=== PATIENT | female | born 1950 | race Caucasian/White ===

== ENCOUNTER 2017-02-23 13:04 | Inpatient (IN) | payer MEDICARE, OTHER ==
[~2017-02-23] VITALS: Ht 170.2 cm; Wt 64.9 kg
--- NOTE | ~2017-02-23 | CN ---
PATIENT NAME:DEMETRICE NIELSON MEDICAL RECORD: [id number] : 50 LOCATION:[facility] D.2132 ADMIT DATE: 02/23/17 ACCOUNT: [id number] CONSULTING PHYSICIAN: RACHEL NORRIS MD REFERRING PHYSICIAN: REYES JEAN MD DATE OF CONSULTATION: 02/24/2017 CONSULT REQUESTING PHYSICIAN: Sukhwinder Carrero DO REASON FOR CONSULTATION: COPD exacerbation, influenza. HISTORY OF PRESENT ILLNESS: Ms. Nielson is a 66-year-old female who is sick for the last few days. On Friday, she was seen in the walk-in clinic. She was checked for influenza and that was positive. Her was initially sick. Now, she has worsening shortness of breath, wheezing, and coughing and the patient came into the ER. She has generalized body aches and pain. The patient was admitted with acute exacerbation of COPD. PAST MEDICAL HISTORY: 1. Hypertension. 2. History of skin cancer. 3. No documented COPD. 4. Tobacco dependence syndrome. PAST SURGICAL HISTORY: Appendectomy, hysterectomy, bowel obstruction. ALLERGIES: SHE IS ALLERGIC TO DEMEROL. MEDICATIONS: She is on Rocephin IV, albuterol/ipratropium nebulizer, Cardizem, and lisinopril. Her other medications are reviewed. PERSONAL AND SOCIAL HISTORY: The patient still continues to smoke one pack per day. She is nondrinker. FAMILY HISTORY: Significant for cardiovascular disease. PHYSICAL EXAMINATION: GENERAL: Now, the patient is lying comfortably in bed. She is not in acute distress. VITAL SIGNS: Blood pressure is 143/71, pulse is 101, respiration is 18, temperature is 97.5, and SpO2 of 92% on 2 liters nasal cannula. HEENT: Conjunctivae are pink. Sclerae not icteric. NECK: Neck is supple. No JVD. CHEST: The chest excursion is minimal on both sides and wheezing on forceful expiration. HEART: Rhythm regular. Normal sounds. No murmur. ABDOMEN: Abdomen is soft. Bowel sounds present. No hepatosplenomegaly. RECTAL: Deferred. EXTREMITIES: No cyanosis, no clubbing, no pedal edema. SKIN: The skin is warm. Normal turgor. CENTRAL NERVOUS SYSTEM: The patient is awake and alert. There are no obvious cranial nerve abnormalities. The gait was not tested. CHEST RADIOGRAPH: There is hyperinflation. No acute infiltrates. CONSULT REPORT [id number] DEMETRICE NIELSON LABORATORY DATA: CBC; WBC 8.6, hemoglobin 15.9, hematocrit 47.7, and platelet count 179. Chemistry; sodium 141, potassium 3.7, BUN is 30, creatinine 0.7, glucose 105. IMPRESSION: 1. Acute exacerbation of COPD. 2. Tracheobronchitis. 3. Tobacco dependence syndrome. 4. Flu influenza. 5. Hypertension. RECOMMENDATION: 1. Supplemental oxygen. We will check the patient's pulse ox on room air at rest and with activity. 2. Continue albuterol/ipratropium nebulizer. Start on Brovana and budesonide nebulizer. 3. The patient was counseled to quit smoking. Check the alpha 1 level. Methylprednisolone IV, Rocephin IV. Followup labs and chest radiograph in the morning. If the patient is feeling better in a.m., can go home, but today I asked her to stay overnight. TRANSINT:[id number] Voice Confirmation ID: [id number] DOCUMENT ID: [id number] RACHEL NORRIS MD at 1406 CC: [id number] DICTATION DATE: 02/24/17 1256 [employer] SUPERVISOR: 02/24/[id number] DIS IN 02/25/17 [facility] [address] [place] [address]
[~2017-02-23 13:04] MED LIST: ACETAMINOPHEN325 MG NG; AMBIEN10 MG PO; ASPIRIN325 MG PO; CALCIUM 500 + D1 TAB PO; CYCLOBENZAPRINE10 MG PO; FLAGYL500 MG PO; LEVAQUIN500 MG PO; LIVALO1 MG PO; METAMUCIL1042 GM PO; NORVASC5 MG PO; OSTEO BI-FLEX1 EAC1 PO; PRILOSEC20 MG PO; PRINIVIL20 MG PO; UNISOM SLEEP AI25 MG PO; ZOFRAN4 MG PO
[2017-02-23 14:01] LABS: BASOPHILS 0 % (0-2); EOSINOPHILS 0 % (0-7); HEMATOCRIT 47.7 % (36.0-48.0); HEMOGLOBIN 15.9 g/dL (12-16); IMMATURE GRANULOCYTES 0.3 % (0-5); LYMPHOCYTES 6.5 % (15-50); MCH 30.5 pg (26.0-34.0); MCHC 33.3 g/dL (31.0-37.0); MCV 91.4 fL (80.0-100.0); MEAN PLATELET VOLUME 10.3 fL (7.4-10.4); MONOCYTES 10.9 % (2-11); NEUTROPHILS 82.3 % (40-80); PLATELET COUNT 179 10x3/uL (130-400); RBC 5.22 10x6/uL (4.00-5.40); WBC 8.6 10x3/uL (4.8-10.8)
[2017-02-23 14:15] LABS: ALBUMIN 3.6 g/dL (3.4-5.0); ALKALINE PHOSPHATASE 121 U/L (46-116); ALT (SGPT) 14 U/L (10-68); BILIRUBIN - TOTAL 0.18 mg/dL (0.2-1.3); CALC OSMOLALITY 280 mosm/kg (275-300); CALCIUM 8.9 mg/dL (8.5-10.1); CARBON DIOXIDE 26.4 mmol/L (21.0-32.0); CHLORIDE - SERUM 103 mmol/L (98-107); CREATININE - SERUM 0.7 mg/dL (0.6-1.3); GLUCOSE 105 mg/dL (74-106); POTASSIUM - SERUM 3.7 mmol/L (3.5-5.1); PROTEIN - SERUM 7.3 g/dL (6.4-8.2); SODIUM 141 mmol/L (136-145); UREA NITROGEN 13 mg/dL (7-18); eGFR NON AFRICAN AMERICAN 89 mL/min (90-120)
[2017-02-23 15:16] LABS: APPEARANCE CLEAR (CLEAR); BILIRUBIN NEGATIVE (NEGATIVE); COLOR YELLOW (YELLOW); GLUCOSE NEGATIVE (NEGATIVE); KETONE NEGATIVE (NEGATIVE); NITRITE NEGATIVE (NEGATIVE); PROTEIN NEGATIVE (NEGATIVE); SPECIFIC GRAVITY 1.015 (1.005-1.020); UROBILINOGEN NORMAL (NORMAL)
[2017-02-23] MEDS ORDERED: ZITHROMAX250 MG PO (18:49)
[2017-02-23] MEDS ORDERED: RESTORIL15 MG PO (18:50)
[2017-02-23] MEDS ORDERED: MELOXICAM TAB 15M (18:51)
[2017-02-23] MEDS ORDERED: NEURONTIN 300300 MG PO (18:51)
[2017-02-23] MEDS ORDERED: DILTIAZEM (18:52)
[2017-02-23] MEDS ORDERED: PANTOPRAZOLE TAB 40M (18:52)
[2017-02-23 20:36] VITALS: BP 174/64
[2017-02-23 21:53] VITALS: Ht 170.2 cm; Wt 64.9 kg
[2017-02-24 01:20] VITALS: BP 137/70
[2017-02-24 05:31] VITALS: BP 143/71
[2017-02-24 08:04] VITALS: BP 152/91
[2017-02-24 13:22] VITALS: BP 131/75
[2017-02-24 15:45] VITALS: BP 128/68
[2017-02-24 19:00] VITALS: BP 130/72
[2017-02-25 04:00] VITALS: BP 113/71
[2017-02-25] MEDS ORDERED: ZPAK PO (07:35)
[2017-02-25] MEDS ORDERED: CEFUROXIME250 MG PO (07:36)
[2017-02-25] MEDS ORDERED: PREDNISONE10 MG PO (07:37)
[2017-02-25] MEDS ORDERED: PROAIR HFA8.5 GM INH (07:38)
[2017-02-25] MEDS ORDERED: BREO ELLIPTA 21 EACH IH (07:39)
[2017-02-25] MEDS ORDERED: MUCINEX600 MG PO (07:39)
[2017-02-25 08:31] VITALS: BP 126/69
== END 2017-02-25 12:45 | disposition home or self-care (01) | DRG 153 ==
LOC: D.ER 13:04 → D.M2 17:50
PROVIDERS: Emergency Medicine
DX: J11.1 Influenza due to unidentified influenza virus with other respiratory manifestations (principal); J44.1 Chronic obstructive pulmonary disease with (acute) exacerbation; I10 Essential (primary) hypertension; F17.208 Nicotine dependence, unspecified, with other nicotine-induced disorders

== ENCOUNTER → 2017-07-03 14:08 | Outpatient (CLI) | payer MEDICARE, OTHER ==
[~2017-07-03 14:08] MED LIST changes: +BREO ELLIPTA 21 EACH IH; +CEFUROXIME250 MG PO; +DILTIAZEM; +MELOXICAM TAB 15M; +MUCINEX600 MG PO; +NEURONTIN 300300 MG PO; +PANTOPRAZOLE TAB 40M; +PREDNISONE10 MG PO; +PROAIR HFA8.5 GM INH; +RESTORIL15 MG PO; +ZITHROMAX250 MG PO; +ZPAK PO
== END | disposition home or self-care (01) ==
LOC: D.CT 14:08
DX: R74.8 Abnormal levels of other serum enzymes (principal)

== ENCOUNTER → 2019-03-26 11:02 | Outpatient (CLI) | payer MEDICARE, OTHER | END | disposition home or self-care (01) | LOC: D.US 11:02 | PROVIDERS: ATTEND Family Medicine | DX: R55 Syncope and collapse (principal) ==